=== PATIENT | female | born 1960 | race Caucasian/White ===

== ENCOUNTER 2017-04-04 15:45 | Emergency (ER) | payer SELFPAY ==
[~2017-04-04] VITALS: Ht 165.1 cm; Wt 90.7 kg
[2017-04-04 17:01] LABS: BASO # 0.1 x10^3/uL (0.0-0.2); BASO % 1 % (0-3); EOS # 0.1 x10^3/uL (0.0-0.7); EOS % 1 % (0-3); HEMATOCRIT 42.9 % (36.0-47.0); HEMOGLOBIN 14.8 g/dL (12.0-15.5); LYMPH # 2.6 x10^3/uL (1.0-4.8); LYMPH % 33 % (24-48); MEAN CORPUSCULAR HEMOGLOBIN 32 pg (25-35); MEAN CORPUSCULAR HGB CONC 35 g/dL (31-37); MEAN CORPUSCULAR VOLUME 92 fL (79-100); MONO # 0.7 x10^3/uL (0.0-1.1); MONO % 8 % (0-9); NEUT # 4.6 x10^3uL (1.8-7.7); NEUT % 58 % (31-73); PLATELET COUNT 226 x10^3/uL (140-400); RED BLOOD COUNT 4.65 x10^6/uL (3.50-5.40); RED CELL DISTRIBUTION WIDTH 13.9 % (11.5-14.5)
[2017-04-04 17:14] LABS: ALBUMIN 3.4 g/dL (3.4-5.0); CALCIUM 8.7 mg/dL (8.5-10.1); CREATININE 0.9 mg/dL (0.6-1.0); POTASSIUM 3.5 mmol/L (3.5-5.1); TOTAL BILIRUBIN 0.3 mg/dL (0.2-1.0); TOTAL PROTEIN 6.8 g/dL (6.4-8.2)
[2017-04-04 17:15] LABS: ACETAMIN 3.9 mcg/mL (10-30); ETHANOL < 10 mg/dL (0-10); SALIC 5.8 mg/dL (2.8-20.0)
[2017-04-04 17:36] LABS: CLARITY,URINE HAZY; COLOR,URINE YELLOW
[2017-04-04 17:37] LABS: BARBITURATES NEG (NEG); BENZODIAZEPINES POS (NEG); BILIRUBIN,URINE NEG (NEG); CANNABINOIDS NEG (NEG); COCAINE NEG (NEG); GLUCOSE,URINE NEG (NEG); METHADONE NEG (NEG); NITRITE,URINE NEG (NEG); OPIATES POS (NEG); PHENCYCLIDINE NEG (NEG); UROBILINOGEN,URINE 0.2 mg/dL (0.2 mg/dL)
[2017-04-04 17:38] LABS: BACTERIA,URINE FEW /HPF (0-FEW); SQUAMOUS EPITHELIAL CELL,UR MOD /LPF; YEAST,URINE PRESENT /HPF
[2017-04-04 17:39] LABS: AMPHETAMINE/METHAMPHETAMINE NEG (NEG)
--- NOTE | 2017-04-04 17:45 | PHYS DOC ---
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 Patient states that she just moved to [place] from [place], she states that she battles chronic fibromyalgia, anxiety, and depression. She states that today she's been having increased thoughts of hurting herself, she does not have a stated plan and has no history of prior suicide attempts as well as no family history of suicide or attempts. She called the suicide hotline on the [facility]'s website and the mental health professional she spoke with was concerned about her and called law enforcement. Law enforcement responded to the patient's residence and offered the patient EMS or transfer per their unit and she chose to come with law enforcement not in custody and not with a pending investigation etc. In the emergency Department vital signs are stable she is calm and cooperative but does have a very flat and depressed affect. She says that she is tired of hurting and that her chronic pain combined with her chronic depression symptoms have made her feel overwhelmed today. She continues to state her wish to end her life but is actively seeking help. She states she wouldn't really kill herself she would always seek help first. She denies prior attempts and she denies any recent self-mutilation or overmedication. She appears to be alert and oriented 3 she does not appear to be under the influence of any intoxicating substances and is appropriate calm and cooperative upon ED arrival. I discussed the medical screening and subsequent tele-psych evaluation. I also discussed the fact that it could be hours to days that she be held here in the emergency department if placement was deemed necessary. She was agreeable to this and stated she would cooperate. Timing/Duration: 4-6 hours Severity: severe Modifying Factors: improves with other Associated Symptoms: other Past Medical History Medical History: other (anxiety, arthritis, COPD, depression, fibromyalgia, hypertension) Surgical History: appendectomy, cholecystectomy, other Social History Smoker: cigarettes Alcohol: occasionally Drugs: marijuana (in the past) Review of Systems Constitutional: denies chills, denies diaphoresis, denies fever, denies malaise Respiratory: denies cough, denies shortness of breath Cardiovascular: denies chest pain, denies palpitations Gastrointestinal: denies abdominal pain, denies nausea, denies vomiting Genitourinary: denies dysuria, denies frequency, denies hematuria Musculoskeletal: see HPI Psychiatric/Neurological: see HPI Hematologic/Lymphatic: denies blood clots, denies easy bleeding, denies easy bruising Physical Exam General Appearance: WD/WN, no apparent distress Eyes: bilateral eye normal inspection, bilateral eye PERRL, bilateral eye EOMI Ear, Nose, Throat: hearing grossly normal, normal ENT inspection Neck: full range of motion, supple Respiratory: normal breath sounds, no respiratory distress Cardiovascular: normal peripheral pulses, regular rate, rhythm Gastrointestinal: non tender, soft Back: no CVA tenderness, no vertebral tenderness Extremities: non-tender, normal inspection 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 Haynes. Labs unremarkable urine drug screen positive for her stated prescription medications. Patient is medically stable for telemetry psych evaluation I notified ED staff. 1858 RN states the patient would like to speak with me when I entered the exam room patient states that she has reconsidered that she has many reasons to live and she does not feel like she was to hurt herself. She states that she has no suicidal ideation and would like to go home after our discussion earlier and hearing about the guidance center. She is agreeable to following up for [facility] morning and she also states that if her mood declines in the interim and she begins to have negative thoughts or thoughts to hurt herself that she will call immediately either to the Hotline order to EMS for transfer to the emergency department again. She is alert and oriented 3 she is not on any intoxicating medications that I know of acutely, she exhibits UCAR capacity and persists in stating she no longer has suicidal thoughts these conversations are witnessed by ED staff. Departure Time of Disposition: 19:00 Disposition: 01 HOME, SELF-CARE Diagnosis: suicidal ideation resolved, depression, anxiety Condition: IMPROVED Patient Instructions: Suicidal Feelings, How to Help Yourself Additional Instructions: You have stated that he no longer feel like hurting herself and that you have multiple reasons to live. You agree to call the hotline once again and will return to the ED should those suicidal thoughts return. ED staff will provide you information regarding the [facility], follow-up there upon opening Friday for walk-in hours and further mental health care. [facility] Friday as discussed. Call 911 or the hotline once again showed suicidal thoughts recur and you once again find herself in need of assistance. Follow-up with your doctor next week and return to ED as needed. ROMERO HAYNES DO Apr 04, 2017 17:44
[2017-04-04 18:55] VITALS: BP 146/90
--- NOTE | 2017-04-05 02:04 | EKG ---
[address] [address] Test Date: 2017-04-04 Test Time: 16:24:23 Pat Name: CHRIS GOLDEN Department: Room: Gender: F [employer] System Administrator: TODD : [id number] Requested By: ROMERO OAKLEY Order Number: [id number] Reading MD: Elier Arnett Measurements Intervals [place] Rate: 85 P: 62 NM: 166 QRS: 72 QRSD: 86 T: 75 QT: 376 QTc: 448 Interpretive Statements SINUS RHYTHM Electronically Signed On 04-09-2017 8:19:21 CDT by Elier Arnett
== END 2017-04-04 19:32 | disposition home or self-care (01) ==
LOC: EEVIPCON 15:45 → ER 15:45
DX: F41.9 Anxiety disorder, unspecified (principal); F32.9 Major depressive disorder, single episode, unspecified; J44.9 Chronic obstructive pulmonary disease, unspecified; M79.7 Fibromyalgia; I10 Essential (primary) hypertension; G89.29 Other chronic pain; F17.210 Nicotine dependence, cigarettes, uncomplicated; F12.10 Cannabis abuse, uncomplicated
CPT/HCPCS: 36415; 80053; 80307; 81001; 85025; 87086; 93005; 99285; G0480; G0479